=== PATIENT | female | born 2000 | race Hispanic/Latino ===

== ENCOUNTER 2025-06-27 19:02 | Emergency (ER) | payer BC ==
[~2025-06-27] VITALS: Ht 165.1 cm; Wt 59.0 kg
--- NOTE | 2025-06-27 19:41 | NUR ---
UA CUP PROVIDED
--- NOTE | 2025-06-27 20:34 | NUR ---
UA COLLECTED AND SENT
[2025-06-27 20:50] LABS: IMMATURE GRANULOCYTE ABSOLUTE 0.02 K/uL (0-1); NUCLEATED RED BLOOD CELLS 0.0 % (0.0-0.19); PLATELET COUNT (AUTO) 262 K/uL (130-400); RED BLOOD CELL COUNT(AUTO) 4.31 MIL/uL (4.00-5.50); RED CELL DISTRIBUTION WIDTH 13.1 % (11.0-15.5); WHITE BLOOD COUNT (AUTO) 8.9 K/uL (4.8-10.8)
[2025-06-27 20:58] LABS: CREATININE 0.7 mg/dL (0.5-1.0); GLOMERULAR FILTR. RATE CALC 123.0 mL/min (>90); GLUCOSE,RANDOM 92.0 mg/dL (70-105); SODIUM SERUM 139.0 mmol/L (136-145); UREA NITROGEN, BLOOD 10.0 mg/dL (7-18)
[2025-06-27 21:10] LABS: HCG,QUANTITATIVE 717.0 mIU/mL (0-5)
--- NOTE | 2025-06-27 21:24 | HMCIMG ---
EXAM: US Obstetrical, Complete <14 weeks CLINICAL HISTORY: vaginal bleeding TECHNIQUE: Transvaginal imaging of the maternal pelvis and a < 14-week gestation with image documentation. COMPARISON: None provided. FINDINGS: GESTATION: Based on the last menstrual period dated May 21, 2025, the estimated gestational age is approximately 5 weeks 4 days. No intrauterine gestational sac is identified. UTERUS / ENDOMETRIUM: The uterus measures approximately 9.1 x 3.8 x 5.5 cm. No focal myometrial mass is seen. Endometrial thickness measures approximately 7 mm. CERVIX: Closed. RIGHT ADNEXA / OVARY: A complex, solid appearing structure is noted in the right adnexa measuring approximately 3.0 x 2.6 x 2.7 cm. Internal flow is present on the Doppler evaluation. LEFT OVARY: Measures approximately 1.8 x 1.1 x 1.2 cm with preserved Doppler flow. FREE FLUID: No free fluid is identified in the pelvis. IMPRESSION: No intrauterine gestational sac identified at this time. Complex, solid appearing structure in the right adnexa measuring 3.0 x 2.6 x 2.7 cm with internal flow. Recommend a gynecology consultation; correlation with serum beta-hCG levels to exclude ectopic . Follow up with a repeat pelvic ultrasound based on beta hCG trends is advised. /[employer]
[2025-06-27 21:38] LABS: APPEARANCE,URINE CLEAR (CLEAR); GLUCOSE, URINE (UA) NEGATIVE (NEGATIVE); LEUKOCYTE ESTERASE ,URINE NEGATIVE Leu/uL (NEGATIVE); NITRATE,URINE NEGATIVE (NEGATIVE); OCCULT BLOOD,URINE LARGE (NEGATIVE)
--- NOTE | 2025-06-27 21:38 | ERN ---
General Chief Complaint: OB<20 weeks gest. Stated Complaint: VAGINAL BLEEDING Time Seen by MD: 19:41 History of Present Illness Initial Comments 24-year-old female here for evaluation of vaginal bleeding. She states that she had recently found out she was this week. This was unexpected for her. States her last normal menstrual period was May 19. . No fever no cough no shortness a breath. No nausea vomiting diarrhea. Only concerned about the vaginal bleeding. This is her 1st . Allergies: Coded Allergies: No Known Allergies (Unverified Allergy, Unknown, 06/27/25) Past Medical History Past Medical History: Anemia Past Surgical History: Other Surgical History Other: ORAL, BREAST AUGMENTATION Female( History) LMP: May 21, 2025 : 1 Genitourinary: (+) vaginal bleeding Review of Systems: was completed, & the rest were negative. Physical Exam Physical Exam Dictation GENERAL APPEARANCE NAD, activity normal for age, well developed/ well nourished, no cyanosis, pallor, or diaphoresis. EYES lids/conjunctiva normal. EARS/NOSE/THROAT Mucous membranes moist, nares normal, lips/teeth normal uvula midline without oral pharyngeal erythema, exudate or swelling TMs normal bilaterally. No lymphangitis/lymphedema. HEAD/NECK normocephalic atraumatic, no facial trauma, neck is supple. RESPIRATORY respiratory effort normal, speaks in full sentences, no tripod position, no accessory muscle use. Lungs clear to auscultation without rhonchi, wheezes, rales CARDIAC Regular rate and rhythm, no edema. ABDOMINAL Soft, ND/NT. No evidence of fluid wave. No pulsatile masses on exam, rebound tenderness, Herman sign or pain over Mcburney's point. MUSCLES/EXTREMITIES No abnormal range of motion, no swelling. SKIN Warm, pink and dry. No rashes, dermatoses, petechiae or lesions. NEUROLOGICAL Speech is clear and appropriate. Normal level of consciousness. Gait and coordination are normal. 5/5 strength in all extremities. PSYCH Normal mood and affect. Judgement/competence is appropriate Results Laboratory and Microbiology Lab and Micro Result Laboratory Tests Test 06/27/25 20:39 White Blood Count 8.9 K/uL (4.8-10.8) Red Blood Count 4.31 MIL/uL (4.00-5.50) Hemoglobin 12.0 g/dL (12.0-16.0) Hematocrit 38.1 % (36-48) Mean Corpuscular Volume 88.4 fL (79-99) Mean Corpuscular Hemoglobin 27.8 pg (27.0-33.0) Mean Corpuscular Hemoglobin Concent 31.5 g/dL (32.0-36.0) L Red Cell Distribution Width 13.1 % (11.0-15.5) Platelet Count 262 K/uL (130-400) Mean Platelet Volume 10.3 fL (7.5-10.5) Immature Granulocyte % (Auto) 0.2 % (0-1) Neutrophils (%) (Auto) 59.7 % (40.0-77.0) Lymphocytes (%) (Auto) 28.0 % (21.0-51.0) Monocytes (%) (Auto) 10.1 % (3.0-13.0) Eosinophils (%) (Auto) 1.5 % (0.0-8.0) Basophils (%) (Auto) 0.5 % (0.0-5.0) Neutrophils # (Auto) 5.3 K/uL (1.8-7.7) Lymphocytes # (Auto) 2.5 K/uL (1.0-4.8) Monocytes # (Auto) 0.9 K/uL (0.1-1.0) Eosinophils # (Auto) 0.13 K/uL (0.00-0.70) Basophils # (Auto) 0.04 K/uL (0.00-0.20) Absolute Immature Granulocyte (auto 0.02 K/uL (0-1) Nucleated Red Blood Cells 0.0 % (0.0-0.19) Sodium Level 139 mmol/L (136-145) Potassium Level 4.0 mmol/L (3.5-5.1) Chloride Level 104 mmol/L (101-111) Carbon Dioxide Level 29 mmol/L (21-32) Blood Urea Nitrogen 10 mg/dL (7-18) Creatinine 0.7 mg/dL (0.5-1.0) Glomerular Filtration Rate Calc 123 mL/min (>90) Random Glucose 92 mg/dL (70-105) Total Calcium 8.7 mg/dL (8.5-10.1) Human Chorionic Gonadotropin, Quant 717 mIU/mL (0-5) H MDM 24-year-old female here for evaluation of vaginal bleeding. We will get hCG, ultrasound and reassess. She will be discharged home with the ultrasound report. ED Course Orders Procedure Category Date Status Time Cbc With Differential LAB 06/27/25 Complete 19:41 Basic Metabolic Panel LAB 06/27/25 Complete 19:41 Hcg,Quantitative LAB 06/27/25 Complete 19:41 Urinalysis Profile LAB 06/27/25 Logged 19:42 Us Ob Transvaginal US 06/27/25 Resulted 19:46 Vital Signs Date Time Temp Pulse Resp B/P (MAP) Pulse Ox O2 Delivery O2 Flow Rate FiO2 06/27/25 20:55 97.5 67 18 115/76 99 Room Air* 0 21 06/27/25 19:40 97.9 84 16 139/79 100 Room Air DX & DISP Disposition: Discharge Departure Impression: Primary Impression: Vaginal bleeding affecting early Condition: Stable Referrals: TRAE FENTON (PCP) SHERIDAN SEGURA MD Jun 27, 2025 21:38
[2025-06-27 21:43] LABS: ADD UA MICROSCOPIC YES
[2025-06-27 21:44] LABS: SQUAMOUS EPITHELIAL CELL,UR FEW /HPF (0-2)
[2025-06-27 21:55] VITALS: BP 118/72; PULSE 72; RESP 18; TEMP 97.8; O2SAT 100
== END 2025-06-27 21:56 | disposition home or self-care (01) ==
LOC: EDH 19:02
DX: O46.91 Antepartum hemorrhage, unspecified, first trimester (principal); O99.011 Anemia complicating pregnancy, first trimester; Z3A.01 Less than 8 weeks gestation of pregnancy
CPT/HCPCS: 36415; 76817; 80048; 81001; 84702; 85025; 99284